=== PATIENT | male | born 2000 | race African-American/Black ===

== ENCOUNTER 2020-07-25 15:11 | Emergency (ER) | payer BC ==
[~2020-07-25] VITALS: Ht 188 cm; Wt 104.3 kg
[2020-07-25] MEDS ORDERED: NORVASC 2.5 MG2.5 M1 PO (15:26)
[2020-07-25] MEDS ORDERED: TRAZODONE HCL50 MG PO (15:27)
[2020-07-25] MEDS ORDERED: RISPERDAL2 MG PO (15:27)
[2020-07-25] MEDS ORDERED: BENZTROPINE MES1 MG PO (16:28)
[2020-07-25 17:13] VITALS: BP 124/79
== END 2020-07-25 17:13 | disposition home or self-care (01) ==
LOC: M.ERS 15:11
DX: R06.02 Shortness of breath (principal); T43.595A Adverse effect of other antipsychotics and neuroleptics, initial encounter; I10 Essential (primary) hypertension; Z79.899 Other long term (current) drug therapy; Y92.89 Other specified places as the place of occurrence of the external cause